=== PATIENT | female | born 1980 | race Caucasian/White ===

== ENCOUNTER 2018-03-14 18:31 | Emergency (ER) | payer MEDICAID ==
[2018-03-14 19:31] LABS: BASOPHILS 0.3 % (0-2); EOSINOPHILS 3.5 % (0-7); HEMATOCRIT 40.2 % (36.0-48.0); HEMOGLOBIN 13.8 g/dL (12-16); LYMPHOCYTES 25.6 % (15-50); MCH 32.5 pg (26.0-34.0); MCHC 34.3 g/dL (31.0-37.0); MCV 94.8 fL (80.0-100.0); MEAN PLATELET VOLUME 10.8 fL (7.4-10.4); NEUTROPHILS 65.6 % (40-80); PLATELET COUNT 209 10x3/uL (130-400); RBC 4.24 10x6/uL (4.00-5.40); RDW 13.9 % (11.5-14.5); WBC 6.3 10x3/uL (4.8-10.8)
[2018-03-14 19:34] LABS: ALBUMIN 3.6 g/dL (3.4-5.0); ALKALINE PHOSPHATASE 58 U/L (46-116); ALT (SGPT) 13 U/L (10-68); AMYLASE - SERUM 44 U/L (25-115); BILIRUBIN - TOTAL 0.36 mg/dL (0.2-1.3); CALC OSMOLALITY 273 mosm/kg (275-300); CALCIUM 8.4 mg/dL (8.5-10.1); CARBON DIOXIDE 24.1 mmol/L (21.0-32.0); CHLORIDE - SERUM 103 mmol/L (98-107); CREATININE - SERUM 0.7 mg/dL (0.6-1.3); GLUCOSE 115 mg/dL (74-106); LIPASE 131 U/L (73-393); POTASSIUM - SERUM 3.8 mmol/L (3.5-5.1); PROTEIN - SERUM 7.4 g/dL (6.4-8.2); SODIUM 137 mmol/L (136-145); UREA NITROGEN 10 mg/dL (7-18); eGFR NON AFRICAN AMERICAN > 90 mL/min (90-120)
[2018-03-14 21:28] LABS: APPEARANCE CLEAR (CLEAR); BILIRUBIN NEGATIVE (NEGATIVE); COLOR YELLOW (YELLOW); GLUCOSE NEGATIVE (NEGATIVE); KETONE NEGATIVE (NEGATIVE); NITRITE NEGATIVE (NEGATIVE); PROTEIN NEGATIVE (NEGATIVE); UROBILINOGEN NORMAL (NORMAL)
== END 2018-03-15 00:12 | disposition home or self-care (01) ==
LOC: D.ER 18:31
PROVIDERS: Emergency Medicine
DX: R19.00 Intra-abdominal and pelvic swelling, mass and lump, unspecified site (principal); Z85.038 Personal history of other malignant neoplasm of large intestine; Z85.05 Personal history of malignant neoplasm of liver

== ENCOUNTER 2018-04-01 15:42 | Emergency (ER) | payer MEDICAID ==
[~2018-04-01] VITALS: Ht 167.6 cm; Wt 79.5 kg
[~2018-04-01 15:42] MED LIST: ZOFRAN ODT4 MG/UDTAB PO
[2018-04-01 16:06] VITALS: Ht 167.6 cm; Wt 79.5 kg
[2018-04-01 16:41] LABS: BASOPHILS 0 % (0-2); EOSINOPHILS 0.6 % (0-7); HEMOGLOBIN 14.5 g/dL (12-16); IMMATURE GRANULOCYTES 0.2 % (0-5); LYMPHOCYTES 10.7 % (15-50); MCH 32.4 pg (26.0-34.0); MCHC 34.5 g/dL (31.0-37.0); MEAN PLATELET VOLUME 10.8 fL (7.4-10.4); MONOCYTES 3.4 % (2-11); NEUTROPHILS 85.1 % (40-80); PLATELET COUNT 192 10x3/uL (130-400); RBC 4.47 10x6/uL (4.00-5.40); RDW 14.1 % (11.5-14.5); WBC 6.5 10x3/uL (4.8-10.8)
[2018-04-01 16:56] LABS: ALBUMIN 4.2 g/dL (3.4-5.0); ALKALINE PHOSPHATASE 68 U/L (46-116); ALT (SGPT) 15 U/L (10-68); BILIRUBIN - TOTAL 0.62 mg/dL (0.2-1.3); CALC OSMOLALITY 278 mosm/kg (275-300); CALCIUM 9.1 mg/dL (8.5-10.1); CARBON DIOXIDE 24.9 mmol/L (21.0-32.0); CHLORIDE - SERUM 103 mmol/L (98-107); CREATININE - SERUM 0.8 mg/dL (0.6-1.3); GLUCOSE 129 mg/dL (74-106); POTASSIUM - SERUM 3.7 mmol/L (3.5-5.1); PROTEIN - SERUM 8.4 g/dL (6.4-8.2); SODIUM 140 mmol/L (136-145); UREA NITROGEN 7 mg/dL (7-18); eGFR NON AFRICAN AMERICAN 86 mL/min (90-120)
[2018-04-01 18:05] LABS: APPEARANCE CLEAR (CLEAR); BILIRUBIN NEGATIVE (NEGATIVE); COLOR YELLOW (YELLOW); GLUCOSE NEGATIVE (NEGATIVE); NITRITE NEGATIVE (NEGATIVE); PROTEIN NEGATIVE (NEGATIVE); UROBILINOGEN NORMAL (NORMAL)
[2018-04-01 18:06] LABS: KETONE LARGE mg/dL (NEGATIVE)
[2018-04-01 18:08] LABS: HCG URINE NEGATIVE (NEGATIVE)
[2018-04-01 18:21] VITALS: BP 118/71
== END 2018-04-01 18:22 | disposition home or self-care (01) ==
LOC: D.ER 15:42
PROVIDERS: Family Medicine
DX: C78.5 Secondary malignant neoplasm of large intestine and rectum (principal)

== ENCOUNTER 2018-05-03 12:04 | Emergency (ER) | payer MEDICAID ==
[~2018-05-03] VITALS: Ht 167.6 cm; Wt 75.0 kg
[2018-05-03 12:23] VITALS: Ht 167.6 cm; Wt 75.0 kg
[2018-05-03 14:49] LABS: ALBUMIN 3.8 g/dL (3.4-5.0); ALKALINE PHOSPHATASE 57 U/L (46-116); ALT (SGPT) 15 U/L (10-68); CALC OSMOLALITY 277 mosm/kg (275-300); CALCIUM 8.9 mg/dL (8.5-10.1); CHLORIDE - SERUM 103 mmol/L (98-107); CREATININE - SERUM 0.8 mg/dL (0.6-1.3); GLUCOSE 127 mg/dL (74-106); POTASSIUM - SERUM 3.8 mmol/L (3.5-5.1); PROTEIN - SERUM 7.4 g/dL (6.4-8.2); SODIUM 139 mmol/L (136-145); UREA NITROGEN 8 mg/dL (7-18); eGFR NON AFRICAN AMERICAN 86 mL/min (90-120)
[2018-05-03] MEDS ORDERED: TALWIN NX1 TAB PO (15:12)
[2018-05-03] MEDS ORDERED: COMPAZINE5 MG PO (15:12)
[2018-05-03] MEDS ORDERED: VOLTAREN75 MG PO (15:12)
[2018-05-03 15:31] VITALS: BP 129/75
== END 2018-05-03 15:30 | disposition home or self-care (01) ==
LOC: D.ER 12:04
PROVIDERS: Family Medicine
DX: G89.29 Other chronic pain (principal); C18.9 Malignant neoplasm of colon, unspecified

== ENCOUNTER 2018-05-25 09:23 | Emergency (ER) | payer MEDICAID ==
[~2018-05-25] VITALS: Ht 167.6 cm; Wt 74.5 kg
[~2018-05-25 09:23] MED LIST changes: +COMPAZINE5 MG PO; +TALWIN NX1 TAB PO; +VOLTAREN75 MG PO
[2018-05-25 09:28] VITALS: Ht 167.6 cm; Wt 74.5 kg
[2018-05-25 10:18] LABS: BASOPHILS 0.2 % (0-2); EOSINOPHILS 0.4 % (0-7); HEMATOCRIT 36.6 % (36.0-48.0); HEMOGLOBIN 12.7 g/dL (12-16); IMMATURE GRANULOCYTES 0.2 % (0-5); LYMPHOCYTES 19.2 % (15-50); MCH 32.2 pg (26.0-34.0); MCHC 34.7 g/dL (31.0-37.0); MCV 92.9 fL (80.0-100.0); MEAN PLATELET VOLUME 11.2 fL (7.4-10.4); MONOCYTES 3.1 % (2-11); NEUTROPHILS 76.9 % (40-80); RBC 3.94 10x6/uL (4.00-5.40); RDW 14.8 % (11.5-14.5); WBC 4.8 10x3/uL (4.8-10.8)
[2018-05-25 10:19] LABS: PLATELET COUNT 153 10x3/uL (130-400)
[2018-05-25 10:35] LABS: ALBUMIN 3.7 g/dL (3.4-5.0); ALKALINE PHOSPHATASE 58 U/L (46-116); ALT (SGPT) 19 U/L (10-68); AMYLASE - SERUM 99 U/L (25-115); BILIRUBIN - TOTAL 1.07 mg/dL (0.2-1.3); CALC OSMOLALITY 284 mosm/kg (275-300); CALCIUM 8.7 mg/dL (8.5-10.1); CARBON DIOXIDE 21.2 mmol/L (21.0-32.0); CHLORIDE - SERUM 105 mmol/L (98-107); CREATININE - SERUM 0.8 mg/dL (0.6-1.3); GLUCOSE 118 mg/dL (74-106); LIPASE 228 U/L (73-393); POTASSIUM - SERUM 3.3 mmol/L (3.5-5.1); PROTEIN - SERUM 7.1 g/dL (6.4-8.2); SODIUM 142 mmol/L (136-145); UREA NITROGEN 14 mg/dL (7-18); eGFR NON AFRICAN AMERICAN 86 mL/min (90-120)
[2018-05-25 12:18] VITALS: BP 138/76
== END 2018-05-25 12:18 | disposition home or self-care (01) ==
LOC: D.ER 09:23
PROVIDERS: Family Medicine
DX: C78.6 Secondary malignant neoplasm of retroperitoneum and peritoneum (principal); Z85.038 Personal history of other malignant neoplasm of large intestine; R11.2 Nausea with vomiting, unspecified

== ENCOUNTER 2018-06-03 16:34 | Emergency (ER) | payer MEDICAID ==
[~2018-06-03] VITALS: Ht 167.6 cm; Wt 75.0 kg
[2018-06-03 16:37] VITALS: Ht 167.6 cm; Wt 75.0 kg
[2018-06-03] MEDS ORDERED: DILAUDID2 MG PO (16:39)
[2018-06-03 17:10] LABS: BASOPHILS 0.2 % (0-2); EOSINOPHILS 1.5 % (0-7); HEMATOCRIT 38.1 % (36.0-48.0); HEMOGLOBIN 12.8 g/dL (12-16); IMMATURE GRANULOCYTES 0.2 % (0-5); LYMPHOCYTES 20.6 % (15-50); MCH 31.8 pg (26.0-34.0); MCHC 33.6 g/dL (31.0-37.0); MCV 94.5 fL (80.0-100.0); MEAN PLATELET VOLUME 10.5 fL (7.4-10.4); MONOCYTES 4.5 % (2-11); RBC 4.03 10x6/uL (4.00-5.40); RDW 14.4 % (11.5-14.5); WBC 5.3 10x3/uL (4.8-10.8)
[2018-06-03 17:17] LABS: PLATELET COUNT 220 10x3/uL (130-400)
[2018-06-03 17:36] LABS: ALKALINE PHOSPHATASE 65 U/L (46-116); ALT (SGPT) 19 U/L (10-68); BILIRUBIN - TOTAL 0.51 mg/dL (0.2-1.3); CALC OSMOLALITY 278 mosm/kg (275-300); CALCIUM 8.6 mg/dL (8.5-10.1); CARBON DIOXIDE 27.6 mmol/L (21.0-32.0); CHLORIDE - SERUM 104 mmol/L (98-107); CREATININE - SERUM 0.8 mg/dL (0.6-1.3); GLUCOSE 111 mg/dL (74-106); POTASSIUM - SERUM 3.8 mmol/L (3.5-5.1); PROTEIN - SERUM 7.3 g/dL (6.4-8.2); SODIUM 140 mmol/L (136-145); UREA NITROGEN 9 mg/dL (7-18); eGFR NON AFRICAN AMERICAN 86 mL/min (90-120)
[2018-06-03 20:17] VITALS: BP 145/82
== END 2018-06-03 20:17 | disposition home or self-care (01) ==
LOC: D.ER 16:34
PROVIDERS: Emergency Medicine
DX: R10.30 Lower abdominal pain, unspecified (principal)

== ENCOUNTER 2020-01-06 04:17 | Emergency (ER) | payer MEDICAID ==
[~2020-01-06] VITALS: Ht 167.6 cm; Wt 81.8 kg
[~2020-01-06 04:17] MED LIST changes: +DILAUDID2 MG PO
[2020-01-06 04:21] VITALS: Ht 167.6 cm; Wt 81.8 kg
[2020-01-06 05:13] LABS: BASOPHILS 0 % (0-2); EOSINOPHILS 1.2 % (0-7); HEMATOCRIT 41.6 % (36.0-48.0); HEMOGLOBIN 13.7 g/dL (12-16); IMMATURE GRANULOCYTES 0.2 % (0-5); MCHC 32.9 g/dL (31.0-37.0); MCV 94.1 fL (80.0-100.0); MEAN PLATELET VOLUME 10.4 fL (7.4-10.4); MONOCYTES 3.3 % (2-11); NEUTROPHILS 83.3 % (40-80); PLATELET COUNT 190 10x3/uL (130-400); RBC 4.42 10x6/uL (4.00-5.40); RDW 13.7 % (11.5-14.5); WBC 4.2 10x3/uL (4.8-10.8)
[2020-01-06 06:06] LABS: CALC OSMOLALITY 279 mosm/kg (275-300); CALCIUM 8.6 mg/dL (8.5-10.1); CARBON DIOXIDE 29.7 mmol/L (21.0-32.0); CHLORIDE - SERUM 104 mmol/L (98-107); CREATININE - SERUM 0.7 mg/dL (0.6-1.3); GLUCOSE 151 mg/dL (74-106); POTASSIUM - SERUM 3.7 mmol/L (3.5-5.1); SODIUM 140 mmol/L (136-145); UREA NITROGEN 7 mg/dL (7-18); eGFR NON AFRICAN AMERICAN > 90 mL/min (90-120)
[2020-01-06 06:16] LABS: ALBUMIN 3.7 g/dL (3.4-5.0); ALKALINE PHOSPHATASE 88 U/L (30-120); ALT (SGPT) 36 U/L (10-68); AMYLASE - SERUM 57 U/L (25-115); BILIRUBIN - TOTAL 0.52 mg/dL (0.2-1.3); LIPASE 189 U/L (73-393); PROTEIN - SERUM 6.6 g/dL (6.4-8.2)
[2020-01-06 06:17] LABS: TROPONIN-I < 0.017 ng/mL (0.000-0.060)
[2020-01-06 07:30] LABS: BILIRUBIN NEGATIVE (NEGATIVE); KETONE NEGATIVE (NEGATIVE); NITRITE NEGATIVE (NEGATIVE); UROBILINOGEN NORMAL mg/dL (< 2)
[2020-01-06 07:36] LABS: AMORPHOUS SEDIMENT >1+ LPF (NONE SEEN); BACTERIA FEW HPF (NONE SEEN); EPITHELIAL CELLS 0-5 /hpf (0-5); GRANULAR CAST RARE LPF (NONE SEEN); WHITE CELLS - URINE 0-5 HPF (0-4)
[2020-01-06] MEDS ORDERED: KEFLEX500 MG PO (08:00)
[2020-01-06] MEDS ORDERED: MACROBID100 MG PO (08:00)
[2020-01-06 08:55] VITALS: BP 136/74
== END 2020-01-06 08:57 | disposition home or self-care (01) ==
LOC: D.ER 04:17
PROVIDERS: Family Medicine
DX: R10.30 Lower abdominal pain, unspecified (principal); C78.5 Secondary malignant neoplasm of large intestine and rectum; R11.2 Nausea with vomiting, unspecified

== ENCOUNTER 2020-07-10 04:49 | Emergency (ER) | payer MEDICAID ==
[~2020-07-10] VITALS: Ht 167.6 cm; Wt 81.6 kg
[~2020-07-10 04:49] MED LIST changes: +KEFLEX500 MG PO; +MACROBID100 MG PO
[2020-07-10 04:53] VITALS: BP 138/77; Ht 167.6 cm; Wt 81.6 kg
[2020-07-10 05:15] LABS: BASOPHILS 0 % (0-2); EOSINOPHILS 1.3 % (0-7); HEMATOCRIT 42.1 % (36.0-48.0); IMMATURE GRANULOCYTES 0.3 % (0-5); LYMPHOCYTE ABS# 0.54 10x3/uL (1.18-3.74); LYMPHOCYTES 13.7 % (15-50); MCH 31.1 pg (26.0-34.0); MCHC 33.3 g/dL (31.0-37.0); MCV 93.6 fL (80.0-100.0); MEAN PLATELET VOLUME 10.5 fL (7.4-10.4); MONOCYTES 4.8 % (2-11); NEUTROPHIL ABS# 3.14 10x3/uL (1.56-6.13); NEUTROPHILS 79.9 % (40-80); RDW 13.9 % (11.5-14.5); WBC 3.9 10x3/uL (4.8-10.8)
[2020-07-10 05:16] LABS: PLATELET COUNT 175 10x3/uL (130-400)
[2020-07-10 05:25] LABS: CALC OSMOLALITY 282 mosm/kg (275-300); CALCIUM 8.6 mg/dL (8.5-10.1); CARBON DIOXIDE 26.2 mmol/L (21.0-32.0); CHLORIDE - SERUM 104 mmol/L (98-107); CREATININE - SERUM 0.8 mg/dL (0.6-1.3); GLUCOSE 139 mg/dL (74-106); INR 0.96 (0.85-1.17); POTASSIUM - SERUM 3.6 mmol/L (3.5-5.1); PROTIME 11.8 SECONDS (11.6-15.0); SODIUM 141 mmol/L (136-145); UREA NITROGEN 12 mg/dL (7-18); eGFR NON AFRICAN AMERICAN 85 mL/min (90-120)
[2020-07-10 05:27] LABS: BILIRUBIN NEGATIVE (NEGATIVE); KETONE NEGATIVE (NEGATIVE); NITRITE NEGATIVE (NEGATIVE); UROBILINOGEN NORMAL mg/dL (< 2)
[2020-07-10 05:30] LABS: ALBUMIN 3.5 g/dL (3.4-5.0); ALKALINE PHOSPHATASE 83 U/L (30-120); ALT (SGPT) 27 U/L (10-68); BILIRUBIN - TOTAL 0.43 mg/dL (0.2-1.3); PROTEIN - SERUM 6.9 g/dL (6.4-8.2)
[2020-07-10] MEDS ORDERED: ZOFRAN ODT4 MG/UDTAB PO (06:43)
[2020-07-10] MEDS ORDERED: PERCOCET 10-321 EAC1 PO (06:43)
== END 2020-07-10 06:49 | disposition home or self-care (01) ==
LOC: D.ER 04:49
PROVIDERS: Family Medicine
DX: C18.9 Malignant neoplasm of colon, unspecified (principal); G89.29 Other chronic pain; R10.30 Lower abdominal pain, unspecified

== ENCOUNTER 2020-07-10 10:20 | Inpatient (IN) | payer MEDICAID ==
[~2020-07-10] VITALS: Ht 167.6 cm; Wt 81.8 kg
[~2020-07-10 10:20] MED LIST changes: +PERCOCET 10-321 EAC1 PO
[2020-07-10 10:57] LABS: CALC OSMOLALITY 279 mosm/kg (275-300); CALCIUM 8.9 mg/dL (8.5-10.1); CHLORIDE - SERUM 103 mmol/L (98-107); CREATININE - SERUM 0.8 mg/dL (0.6-1.3); GLUCOSE 135 mg/dL (74-106); POTASSIUM - SERUM 3.8 mmol/L (3.5-5.1); SODIUM 140 mmol/L (136-145); UREA NITROGEN 9 mg/dL (7-18); eGFR NON AFRICAN AMERICAN 85 mL/min (90-120)
[2020-07-10 11:02] LABS: ALKALINE PHOSPHATASE 93 U/L (30-120); ALT (SGPT) 26 U/L (10-68); AMYLASE - SERUM 33 U/L (25-115); BILIRUBIN - TOTAL 0.59 mg/dL (0.2-1.3); PROTEIN - SERUM 7.6 g/dL (6.4-8.2)
[2020-07-10 11:03] LABS: BASOPHILS 0.2 % (0-2); EOSINOPHILS 0.2 % (0-7); HEMATOCRIT 45.1 % (36.0-48.0); HEMOGLOBIN 15.1 g/dL (12-16); IMMATURE GRANULOCYTES 0.5 % (0-5); LYMPHOCYTE ABS# 0.53 10x3/uL (1.18-3.74); LYMPHOCYTES 12.3 % (15-50); MCH 31.1 pg (26.0-34.0); MCHC 33.5 g/dL (31.0-37.0); MEAN PLATELET VOLUME 10.8 fL (7.4-10.4); MONOCYTES 2.6 % (2-11); NEUTROPHIL ABS# 3.62 10x3/uL (1.56-6.13); NEUTROPHILS 84.2 % (40-80); PLATELET COUNT 198 10x3/uL (130-400); RBC 4.85 10x6/uL (4.00-5.40); WBC 4.3 10x3/uL (4.8-10.8)
[2020-07-10 11:04] LABS: LIPASE 45 U/L (73-393); TROPONIN-I < 0.017 ng/mL (0.000-0.060)
[2020-07-10 13:40] VITALS: BP 127/72
[2020-07-10 13:42] VITALS: BP 127/72; Ht 167.6 cm; Wt 81.8 kg
--- NOTE | 2020-07-10 13:42 | NUR ---
RECEIVED PT TO FLOOR. ORIENTED TO ROOM AND UNIT. AT BEDSIDE. RESTING COMFORTABLY. DENIES ANY NEEDS AT THIS TIME. BED IN LOWEST POSITION, BED RAILS X2, CALL LIGHT WITHIN REACH. WILL CONTINUE POC.
--- NOTE | 2020-07-10 13:59 | NUR ---
SPOKE WITH CHRIS DESIR. STATED SHE WOULD LET DR. BURRELL KNOW SHE IS IN THE HOSPITAL.
[2020-07-10 16:00] VITALS: BP 151/86
--- NOTE | 2020-07-10 17:26 | NUR ---
MORPHINE EMBALMER ASSISTANT SET UP. SETTINGS OF 04/17/09. TOLERATING WELL. EDUCATED PATIENT ON HOW TO USE PUMP. DENIES ANY NEEDS AT THIS TIME. WILL CONTINUE POC.
[2020-07-10 20:00] VITALS: BP 138/66
[2020-07-11 04:00] VITALS: BP 145/76
--- NOTE | 2020-07-11 04:37 | NUR ---
Pt has been resting in bed this night. No c/o pain/discomfort. Pt is A&OX$ and verbalizes wants/needs clearly, appropriately and without hesitation or difficulty. IV fluids/meds infusing per order. Did request some jello this AM and ate slowly. Tolerated well.
[2020-07-11 05:18] LABS: BASOPHILS 0.3 % (0-2); EOSINOPHILS 2.1 % (0-7); HEMATOCRIT 39.5 % (36.0-48.0); HEMOGLOBIN 13.1 g/dL (12-16); IMMATURE GRANULOCYTES 0.3 % (0-5); LYMPHOCYTE ABS# 0.75 10x3/uL (1.18-3.74); LYMPHOCYTES 26.2 % (15-50); MCH 31.1 pg (26.0-34.0); MCHC 33.2 g/dL (31.0-37.0); MCV 93.8 fL (80.0-100.0); MEAN PLATELET VOLUME 10.8 fL (7.4-10.4); MONOCYTES 7.3 % (2-11); NEUTROPHIL ABS# 1.82 10x3/uL (1.56-6.13); NEUTROPHILS 63.8 % (40-80); PLATELET COUNT 179 10x3/uL (130-400); RBC 4.21 10x6/uL (4.00-5.40); RDW 14.3 % (11.5-14.5)
[2020-07-11 05:23] LABS: WBC 2.9 10x3/uL (4.8-10.8)
[2020-07-11 05:36] LABS: ALBUMIN 3.4 g/dL (3.4-5.0); ALKALINE PHOSPHATASE 75 U/L (30-120); ALT (SGPT) 29 U/L (10-68); BILIRUBIN - TOTAL 0.79 mg/dL (0.2-1.3); CALC OSMOLALITY 278 mosm/kg (275-300); CALCIUM 8.4 mg/dL (8.5-10.1); CARBON DIOXIDE 27.4 mmol/L (21.0-32.0); CHLORIDE - SERUM 107 mmol/L (98-107); CREATININE - SERUM 0.6 mg/dL (0.6-1.3); GLUCOSE 98 mg/dL (74-106); MAGNESIUM - SERUM 2.1 mg/dL (1.8-2.4); POTASSIUM - SERUM 3.3 mmol/L (3.5-5.1); PROTEIN - SERUM 6.4 g/dL (6.4-8.2); SODIUM 141 mmol/L (136-145); UREA NITROGEN 7 mg/dL (7-18); eGFR NON AFRICAN AMERICAN > 90 mL/min (90-120)
--- NOTE | 2020-07-11 07:21 | NUR ---
AWAKE AND WITHOUT DISTRESS. DENIES NEEDS.CALL LIGHT IN REACH
--- NOTE | 2020-07-11 07:49 | NUR ---
PATIENT AWAKE IN BED, C/O IV PUMP ALARMING, IV SITE IN LEFT FA, PATENT, CDI, STOPPED PUMP FROM ALARMING, K+ 3.3,RE[PLACED K+ PER PROTOCOL. NO OTHER NEEDS VOICED. CONTINUE WITH PLAN OF CARE
[2020-07-11 08:39] VITALS: BP 140/82
--- NOTE | 2020-07-11 09:52 | NUR ---
PATIENT IS REQUESTING TO BE DC HOME, TURNED OFF ZOFRAN DRIP TO SEE HOW PATIENT WILL TOLERATE WELL MORPHINE INFORMATION SYSTEMS SECURITY ANALYST, WILL CONTINUE WITH PLAN OF CARE
--- NOTE | 2020-07-11 11:33 | NUR ---
COLLECTED URINE SPECIMEN PER ORDERS, NO OTHER NEEDS AT THIS TIME. CONTINUE WITH PLAN OF CARE
[2020-07-11 12:03] VITALS: BP 151/75
[2020-07-11 12:10] LABS: HCG URINE NEGATIVE (NEGATIVE)
[2020-07-11 12:32] LABS: BILIRUBIN NEGATIVE (NEGATIVE); KETONE MODERATE mg/dL (NEGATIVE); NITRITE NEGATIVE (NEGATIVE); UROBILINOGEN NORMAL mg/dL (< 2)
[2020-07-11 12:33] LABS: BACTERIA FEW HPF (NONE SEEN); SQUAMOUS EPITHELIAL 0-5 HPF (0-4)
--- NOTE | 2020-07-11 12:35 | NUR ---
PATIENT C/O LEFT ARM SWOLLEN WHERE IV IS. IV SITE CDI, GOOD BLOOD RETURN, PT REUQESTED TO HAVE IV DC SINCE PATIENT WILL BE DC THIS AFTERNOON, DC IV WITH CATHETER INTACT. NO OTHER NEEDS AT THIS TIME. CONTINUE WITH PLAN OF CARE
--- NOTE | 2020-07-11 14:15 | NUR ---
PATIENT DC HOME, WHEELED OUT IN WHEELCHAIR BY ANIMAL RIDE MANAGER AND WITH SPOUSE, ALL QUESTIONS ANSWERED, WENT OVER DC INSTRUCTIONS AND FOLLOW UP APPOINTMENTS
== END 2020-07-11 14:17 | disposition home or self-care (01) | DRG 392 ==
LOC: D.ER 10:20 → D.MS 12:23 → OBSVTIME 12:23 → D.MS 12:23
PROVIDERS: Family Medicine; ADMIT Emergency Medicine; ATTEND Emergency Medicine
DX: R11.2 Nausea with vomiting, unspecified (principal); C18.9 Malignant neoplasm of colon, unspecified; C78.7 Secondary malignant neoplasm of liver and intrahepatic bile duct; C78.00 Secondary malignant neoplasm of unspecified lung; E87.6 Hypokalemia; R10.9 Unspecified abdominal pain

== ENCOUNTER 2020-08-09 18:26 | Emergency (ER) | payer MEDICAID ==
[~2020-08-09] VITALS: Ht 167.6 cm; Wt 77.3 kg
[2020-08-09 18:33] VITALS: Ht 167.6 cm; Wt 77.3 kg
[2020-08-09 18:59] LABS: BASOPHILS 0.3 % (0-2); EOSINOPHILS 2.6 % (0-7); HEMATOCRIT 42.1 % (36.0-48.0); HEMOGLOBIN 14.5 g/dL (12-16); LYMPHOCYTE ABS# 0.71 10x3/uL (1.18-3.74); LYMPHOCYTES 23.3 % (15-50); MCH 30.9 pg (26.0-34.0); MCHC 34.4 g/dL (31.0-37.0); MCV 89.8 fL (80.0-100.0); MEAN PLATELET VOLUME 10.9 fL (7.4-10.4); MONOCYTES 4.6 % (2-11); NEUTROPHIL ABS# 2.11 10x3/uL (1.56-6.13); NEUTROPHILS 69.2 % (40-80); PLATELET COUNT 177 10x3/uL (130-400); RBC 4.69 10x6/uL (4.00-5.40); RDW 13.4 % (11.5-14.5); WBC 3.1 10x3/uL (4.8-10.8)
[2020-08-09 19:21] LABS: ALBUMIN 3.9 g/dL (3.4-5.0); ALKALINE PHOSPHATASE 77 U/L (30-120); ALT (SGPT) 32 U/L (10-68); AMYLASE - SERUM 30 U/L (25-115); BILIRUBIN - TOTAL 0.69 mg/dL (0.2-1.3); CALCIUM 9.1 mg/dL (8.5-10.1); CARBON DIOXIDE 22.7 mmol/L (21.0-32.0); CREATININE - SERUM 0.7 mg/dL (0.6-1.3); GLUCOSE 127 mg/dL (74-106); PROTEIN - SERUM 7.2 g/dL (6.4-8.2); UREA NITROGEN 4 mg/dL (7-18); eGFR NON AFRICAN AMERICAN > 90 mL/min (90-120)
[2020-08-09 19:39] LABS: CALC OSMOLALITY 279 mosm/kg (275-300); CHLORIDE - SERUM 105 mmol/L (98-107); LIPASE 38 U/L (73-393); POTASSIUM - SERUM 3.6 mmol/L (3.5-5.1); SODIUM 141 mmol/L (136-145); TROPONIN-I < 0.017 ng/mL (0.000-0.060)
[2020-08-09] MEDS ORDERED: ZOFRAN ODT4 MG/UDTAB PO (20:26)
[2020-08-09 20:47] VITALS: BP 117/71
== END 2020-08-09 20:48 | disposition home or self-care (01) ==
LOC: D.ER 18:26
PROVIDERS: Emergency Medicine
DX: R10.31 Right lower quadrant pain (principal); C18.9 Malignant neoplasm of colon, unspecified; R11.0 Nausea

== ENCOUNTER 2020-08-15 09:15 | Emergency (ER) | payer MEDICAID ==
[~2020-08-15] VITALS: Ht 167.6 cm; Wt 77.7 kg
[2020-08-15 09:25] VITALS: BP 155/90; Ht 167.6 cm; Wt 77.7 kg
== END 2020-08-15 11:31 | disposition home or self-care (01) ==
LOC: D.ER 09:15
DX: R10.9 Unspecified abdominal pain (principal); G89.29 Other chronic pain; C78.5 Secondary malignant neoplasm of large intestine and rectum

== ENCOUNTER 2020-10-08 14:20 | Observation (INO) | payer MEDICAID ==
[~2020-10-08] VITALS: Ht 167.6 cm; Wt 77.3 kg
[2020-10-08 14:44] LABS: BASOPHILS 0.8 % (0-2); EOSINOPHILS 0.6 % (0-7); HEMATOCRIT 42.6 % (36.0-48.0); HEMOGLOBIN 14.4 g/dL (12-16); LYMPHOCYTES 18.2 % (15-50); MCHC 33.8 g/dL (31.0-37.0); MCV 91.8 fL (80.0-100.0); MEAN PLATELET VOLUME 7.8 fL (7.4-10.4); MONOCYTES 5.6 % (2-11); NEUTROPHILS 74.8 % (40-80); PLATELET COUNT 174 10x3/uL (130-400); RBC 4.65 10x6/uL (4.00-5.40); RDW 16.3 % (11.5-14.5); WBC 5.5 10x3/uL (4.8-10.8)
[2020-10-08 14:50] LABS: CALC OSMOLALITY 278 mosm/kg (275-300); CALCIUM 9.2 mg/dL (8.5-10.1); CARBON DIOXIDE 27.7 mmol/L (21.0-32.0); CHLORIDE - SERUM 103 mmol/L (98-107); CREATININE - SERUM 0.8 mg/dL (0.6-1.3); GLUCOSE 122 mg/dL (74-106); POTASSIUM - SERUM 4.1 mmol/L (3.5-5.1); SODIUM 140 mmol/L (136-145); UREA NITROGEN 10 mg/dL (7-18); eGFR NON AFRICAN AMERICAN 85 mL/min (90-120)
[2020-10-08 14:59] LABS: ALBUMIN 4.4 g/dL (3.4-5.0); ALKALINE PHOSPHATASE 87 U/L (30-120); ALT (SGPT) 52 U/L (10-68); AMYLASE - SERUM 57 U/L (25-115); BILIRUBIN - TOTAL 0.72 mg/dL (0.2-1.3); LIPASE 99 U/L (73-393); PROTEIN - SERUM 8.3 g/dL (6.4-8.2)
[2020-10-08 15:17] LABS: TROPONIN-I < 0.017 ng/mL (0.000-0.060)
--- NOTE | 2020-10-08 19:27 | NUR ---
RECEIVED REPORT FROM ARIELLE DAVIES
--- NOTE | 2020-10-08 20:27 | NUR ---
URINE OBTAINED AND SENT TO THE LAB
[2020-10-08 20:41] LABS: BILIRUBIN NEGATIVE (NEGATIVE); HCG URINE NEGATIVE (NEGATIVE); KETONE TRACE mg/dL (< 1+); NITRITE NEGATIVE (NEGATIVE); PH 5.5 (5.0-8.0); SQUAMOUS EPITHELIAL <1 HPF (0-4); UROBILINOGEN NORMAL mg/dL (< 2); WHITE CELLS - URINE 2 HPF (0-4)
[2020-10-08 20:46] LABS: BACTERIA FEW HPF (<MOD)
[2020-10-08 20:57] VITALS: BP 181/91
[2020-10-08 21:27] VITALS: BP 173/102
[2020-10-08 23:41] VITALS: BP 149/87
[2020-10-08 23:51] VITALS: BP 149/96; Ht 167.6 cm; Wt 77.3 kg
[2020-10-09 04:00] VITALS: BP 125/87
[2020-10-09 06:22] LABS: BASOPHILS 0.7 % (0-2); EOSINOPHILS 1.9 % (0-7); HEMATOCRIT 36.9 % (36.0-48.0); HEMOGLOBIN 12.6 g/dL (12-16); LYMPHOCYTES 29.1 % (15-50); MCH 31.4 pg (26.0-34.0); MCV 92.4 fL (80.0-100.0); MEAN PLATELET VOLUME 8.1 fL (7.4-10.4); MONOCYTES 10.3 % (2-11); RDW 16.6 % (11.5-14.5)
[2020-10-09 06:23] LABS: PLATELET COUNT 134 10x3/uL (130-400); WBC 3.5 10x3/uL (4.8-10.8)
[2020-10-09 07:20] LABS: ALBUMIN 3.4 g/dL (3.4-5.0); ALKALINE PHOSPHATASE 64 U/L (30-120); ALT (SGPT) 44 U/L (10-68); BILIRUBIN - TOTAL 0.95 mg/dL (0.2-1.3); CALCIUM 8.2 mg/dL (8.5-10.1); CARBON DIOXIDE 24.1 mmol/L (21.0-32.0); CHLORIDE - SERUM 107 mmol/L (98-107); CREATININE - SERUM 0.6 mg/dL (0.6-1.3); GLUCOSE 90 mg/dL (74-106); POTASSIUM - SERUM 3.9 mmol/L (3.5-5.1); PROTEIN - SERUM 6.7 g/dL (6.4-8.2); SODIUM 141 mmol/L (136-145); eGFR NON AFRICAN AMERICAN > 90 mL/min (90-120)
[2020-10-09 07:32] LABS: CALC OSMOLALITY 278 mosm/kg (275-300); UREA NITROGEN 7 mg/dL (7-18)
--- NOTE | 2020-10-09 07:47 | NUR ---
UP AT THE SINK BRUSHING TEETH, ALERT AND ORIENTED. IV LOCATED TO LEFT AC CURRENTLY RUNNING NS @ 100, ZOFRAN @ 4.7. NO CURRENT S/S OF DISTRESS AT THIS TIME, DENIES CURRENT NEEDS, WILL CONT TO MONITOR.
--- NOTE | 2020-10-09 07:59 | NUR ---
PT REQUESTING TO LEAVE, STATES ER TOLD HER SHE WOULD BE DISCHARGED FIRST THING THIS MORNING, INFORMED PT THEY WOULD HAVE TO SPEAK TO DR TODAY WHILE MAKING ROUNDS AND BE SEEN BEFORE BEING DC. DENIES FURTHER NEEDS AT THIS TIME.
[2020-10-09 09:52] VITALS: BP 130/85
--- NOTE | 2020-10-09 11:04 | NUR ---
IV OUT, CATHETER TIP INTACT. DC PAPERS SIGNED WITH NO CONCERNS VOICED. DC`D HOME WITH SPOUSE.
--- NOTE | 2020-10-09 17:39 | MORECARE ---
CASE MANAGEMENT DISCHARGE SUMMARY PATIENT: TYRESE BURT UNIT: [id number] ADM DATE: 10/08/20 AGE: 40 : 82 SEX: F ROOM/BED: [facility] AUTHOR: [place] PHYSICIAN: REFERRING PHYSICIAN: RUSLAN MARTINEZ MD DATE OF SERVICE: 10/09/20 Case Management Discharge Planning Summary DCP REVIEW SUMMARY ANTICIPATED D/C DATE: EXPECTED LOS : CASE STATUS: DCP Complete INITIAL REVIEW: 10/08/2020 INITIAL REVIEWER: Annie Alvarez FINAL DISCHARGE DISPOSITION: : FINAL REVIEWER: FINAL REVIEW DATE: DCP [employer] QUESTION: ANSWER : PATIENT: TYRESE BURT ENCOUNTER: [id number] MEDICAL RECORD#: [id number] ADMISSION DATE: 10/08/2020 DISCHARGE DATE: 10/09/2020 ATTENDING MD: : AGE: 40 MARITAL STATUS: M DC PLAN ID: [id number] FACILITY: [facility] PRINTED ON: 10/09/20 17:39 CT All edits/amendments must be made on the electronic document DICTATION DATE: 10/09/201738 DIETICIAN: DM 10/09/20 173 RPT#: [id number] DC DATE:10/09/20 STATUS: DIS IN [facility] [address] [place] [address] END OF REPORT
== END 2020-10-09 11:05 | disposition home or self-care (01) ==
LOC: D.ER 14:20 → D.EDHOLD 16:19 → OBSVTIME 16:19 → D.MS 22:12
PROVIDERS: Family Medicine; ADMIT Family Medicine; ATTEND Family Medicine
DX: R10.9 Unspecified abdominal pain (principal); R11.2 Nausea with vomiting, unspecified; Z85.038 Personal history of other malignant neoplasm of large intestine